=== PATIENT | female | born 1950 | race Caucasian/White ===

== ENCOUNTER 2017-11-08 10:40 | Day surgery (SDC) | payer OTHER, MEDICARE ==
[2017-10-28 11:27] VITALS: BMI 42.0
[~2017-11-08 10:40] MED LIST: ACETAMINOPHEN 325 MG TABLET (FP) PO PRN
[2017-11-08] MEDS: PHENYLEPHRINE 2.5% OPHTH SOLN 15 ML BOTTLE ONE ×5 (11:10→11:30)
[2017-11-08] MEDS: KETOROLAC TROMETHAMINE 0.5% 5 ML BOTTLE OPTHALMIC ONE ×5 (11:10→11:30)
[2017-11-08] MEDS: GENTAMICIN SULFATE 0.3% OPHTHALMIC (EYE DROPS) 5ML BOTTLE ONE ×2 (11:10→11:30)
[2017-11-08] MEDS: TROPICAMIDE 1% OPHTH SOLN 15 ML BOTTLE ONE ×5 (11:10→11:30)
[2017-11-08] MEDS: CYCLOPENTOLATE HCL 1% OPHTH SOLN 2 ML BOTTLE ONE ×5 (11:10→11:30)
[2017-11-08] MEDS ORDERED: PROPOFOL 20 ML ONE (11:44)
[2017-11-08] MEDS ORDERED: ACETYLCHOLINE 1:100 INTRA-OCUL 20 MG/2 ML KIT ONE (11:46)
[2017-11-08] MEDS ORDERED: BSS (NA/CA/MG/K) BALANCED SALT SOLUTION OPHTH SOLN 15 ML BOTTLE ONE (11:46)
[2017-11-08] MEDS ORDERED: MIDAZOLAM HCL 2 MG/2 ML SINGLE DOSE VIAL ONE (12:02)
[2017-11-08] MEDS ORDERED: ONDANSETRON 4 MG/2 ML VIAL IVPUSH PRN (12:31)
[2017-11-08] MEDS ORDERED: LACTATED RINGERS SOLUTION 1,000 ML IV SCH (12:45)
[2017-11-08 13:28] VITALS: TEMP 98.1
[2017-11-08 13:57] VITALS: BP 130/76; PULSE 76
--- NOTE | 2017-11-08 19:26 | OP ---
DATE OF OPERATION: 11/08/2017 TITLE OF PROCEDURE: Planned extracapsular cataract extraction, phacoemulsification, insertion of posterior chamber lens implant in the right eye. SURGEON: Nas Tiwari MD HI LIFT OPERATOR SURGEON: Nas Tiwari MD COMPLICATIONS: None. PREOPERATIVE DIAGNOSIS: Cataract right eye. POSTOPERATIVE DIAGNOSIS: Cataract right eye. FINDINGS AND PROCEDURE: After successful peribulbar anesthesia was given, the patient was prepped and draped in the usual manner to expose the right eye. The lid speculum was inserted and Tegaderm strips were inserted on the lid lashes to keep them away from the field and the operating room microscope brought into position over the eye. was then fashioned for 12 mm using Lise scissors and 0.12 forceps and hemostasis achieved with Wet-Field cautery. Limbal groove was fashioned for 3 mm with a crescent blade and dissected anterior into clear cornea, and a 3-mm blade was used to enter the anterior chamber. Then, under Viscoat, a 360-degree anterior capsulorrhaphy was performed and leaflet removed from the eye, and phacoemulsification of the entire nucleus was done in approximately 2 minutes' time without complication. This was followed by as I mentioned irrigation aspiration of all cortical material, leaving an intact posterior capsule and a red reflex present. The implant was inspected carefully with the microscope and found to be free of defect, , or flaws. It was folded, placed in the Provisc-filled cartridge. The cartridge was placed in the injector, and the implant was injected into the capsular bag with the inferior haptic in the inferior capsular bag and the superior haptic in the superior capsular bag and rotated in a horizontal position with a Sinskey hook. It should be noted that after the insertion of the implant and the capsular bag, there was a posterior capsular opening which occurred spontaneously and the implant was in good anatomic position, and the capsular opening was centrally located. The Provisc was gently aspirated out and replaced with Miochol, Miostat, and BSS, and the wound was closed with a single interrupted 2-0 Ethilon suture and tested for leakage, and none was found. Conjunctival tenon's flap was reapproximated. At this point, the implant was fixated in the capsular bag, centrally located with a round pupil, intact posterior capsule and a red reflex present. Topical Betoptic S and Maxitrol ophthalmic suspensions were placed as was bacitracin ophthalmic ointment. The Tegaderm strips and the lid speculum were removed from the lids, the lids were closed, and a patch and shield placed on the eye. The patient was then discharged from the operating room to the recovery area in good condition, having tolerated the procedure well. Kimo [id number]
== END 2017-11-08 13:59 | disposition home or self-care (01) ==
LOC: FASU 10:40
PROVIDERS: ATTEND Ophthalmology
PROC: 08RJ3JZ Replacement of Right Lens with Synthetic Substitute, Percutaneous Approach (ICD-10-PCS; principal; 2017-11-08 12:22)
DX: H26.9 Unspecified cataract (principal)
CPT/HCPCS: 82962

== ENCOUNTER 2018-01-03 08:52 | Day surgery (SDC) | payer OTHER, MEDICARE ==
[2017-12-27 15:04] VITALS: BMI 41.0
[2018-01-03] MEDS: PHENYLEPHRINE 2.5% OPHTH SOLN 15 ML BOTTLE ONE ×5 (09:30→09:50)
[2018-01-03] MEDS: TROPICAMIDE 1% OPHTH SOLN 15 ML BOTTLE ONE ×5 (09:30→09:50)
[2018-01-03] MEDS: GENTAMICIN SULFATE 0.3% OPHTHALMIC (EYE DROPS) 5ML BOTTLE ONE ×2 (09:30→09:50)
[2018-01-03] MEDS: KETOROLAC TROMETHAMINE 0.5% 5 ML BOTTLE OPTHALMIC ONE ×5 (09:30→09:50)
[2018-01-03] MEDS: CYCLOPENTOLATE HCL 1% OPHTH SOLN 2 ML BOTTLE ONE ×5 (09:30→09:50)
[2018-01-03] MEDS ORDERED: ACETAMINOPHEN 325 MG TABLET (FP) PO PRN (10:12)
[2018-01-03] MEDS ORDERED: LIDOCAINE HCL/PF 2% SDV 5ML VIAL ONE (10:13)
[2018-01-03] MEDS ORDERED: BSS (NA/CA/MG/K) BALANCED SALT SOLUTION OPHTH SOLN 15 ML BOTTLE ONE (10:14)
[2018-01-03] MEDS ORDERED: BUPIVACAINE HCL/PF 0.5% (5MG/ML) 10 ML VIAL ONE (10:14)
[2018-01-03] MEDS ORDERED: LIDOCAINE HCL 2% JELLY 10 ML CARTRIDGE ONE (10:14)
[2018-01-03] MEDS ORDERED: TETRACAINE 0.5% OPHTH SOLN 2 ML BOTTLE ONE (10:14)
[2018-01-03] MEDS ORDERED: CARBACHOL 0.01% INTRA-OCULAR 1.5 ML VIAL ONE (10:14)
[2018-01-03] MEDS ORDERED: ACETYLCHOLINE 1:100 INTRA-OCUL 20 MG/2 ML KIT ONE (10:14)
[2018-01-03] MEDS ORDERED: MIDAZOLAM HCL 2 MG/2 ML SINGLE DOSE VIAL ONE (10:24)
[2018-01-03] MEDS ORDERED: PROPOFOL 20 ML ONE (10:54)
[2018-01-03] MEDS ORDERED: BACITRACIN/POLYMYXIN OPH OINT 3.5 GM TUBE ONE (11:47)
[2018-01-03 14:24] VITALS: PULSE 84; TEMP 97.9
[2018-01-03 14:32] VITALS: BP 150/87
--- NOTE | 2018-01-03 17:01 | OP ---
DATE OF OPERATION: 01/03/2018 TITLE OF PROCEDURE: Planned extracapsular cataract extraction, phacoemulsification, insertion of posterior chamber lens implant, left eye. SURGEON: Nas Araya M.D. GROUND SUPPORT EQUIPMENT FITTER: Nas Araya M.D. ANESTHESIA: Local standby. ANESTHESIOLOGIST: Roberto Carlos Rodriguez M.D. COMPLICATIONS: None. PREOPERATIVE DIAGNOSIS: Cataract, left eye. POSTOPERATIVE DIAGNOSIS: Mature cataract, left eye. FINDINGS AND PROCEDURE: After successful peribulbar anesthesia was given to the left eye, the patient was prepped and draped in the usual manner to expose the left eye. Lid speculum inserted. Microscope brought into position over the eye. A superior fornix-based flap was then fashioned for 12 mm using Lise scissors and 0.12 forceps, and hemostasis achieved with wet field electrocautery. Limbal groove was fashioned for 3 mm and a crescent blade was used to fashion the groove, and then 3-mm blade was used to enter the anterior chamber. Then under Viscoat a 360-degree anterior capsulotomy was performed, leaflet removed from the eye, and then phacoemulsification of entire nucleus was then done with bimanual technique without complications, and this was followed by irrigation, aspiration of all cortical material, leaving an intact posterior capsule. However, there was a small posterior capsular rupture noted running from 1 o'clock to 7 o'clock, but most of the capsular bag remained, so it was decided to put in a posterior chamber lens, which was placed, and well supported, running in the 1 o'clock to 7 o'clock position. The Provisc was gently aspirated out. No vitreous ever appeared either in the posterior chamber, anterior chamber, or through the wound. Suture was placed to close the wound down, and it was tested for leakage, and none was found. After the Provisc was aspirated out, we placed Miochol, Miostat, and BSS. The conjunctival Tenon flap was reapproximated. At this point, the implant was fixated in the capsular bag, centrally located with a round pupil, and a small posterior capsulotomy temporally. Red reflex present. Topical Betoptic S and Maxitrol ophthalmic suspensions were paced as was bacitracin and polymyxin B ophthalmic ointment. The Tegaderm strips and lid speculum were removed from the lids, the lids were closed, and a patch and shield placed on the eye, and the patient was then discharged from the operating room to the recovery room in good condition, having tolerated the procedure well. NAS ARAYA M.D. [id number]
== END 2018-01-03 12:45 | disposition home or self-care (01) ==
LOC: FASU 08:52
PROVIDERS: ATTEND Ophthalmology
PROC: 08RK3JZ Replacement of Left Lens with Synthetic Substitute, Percutaneous Approach (ICD-10-PCS; principal; 2018-01-03 10:30)
DX: H25.22 Age-related cataract, morgagnian type, left eye (principal)
CPT/HCPCS: 82962